=== PATIENT | female | born 1955 | race African-American/Black ===

== ENCOUNTER → 2017-02-23 | Outpatient (CLI) | payer BC, OTHER ==
[~2017-02-23] MED LIST: ADVAIR 500-501 EACH INH; AVELOX 400 MG400 M1 PO; DILTIAZEM 24HR120 M1 PO; DILTIAZEM ER180 M1 PO; DILTIAZEM ER240 M1 PO; DIOVAN320 MG PO; ELIQUIS5 MG PO; FISH OIL 1,0001 EAC5 PO; FLECAINIDE ACE150 MG PO; FLECAINIDE ACET50 M1 PO; HYDROXYCHLOROQ200 M1 PO; KLOR-CON 10 ER10 MEQ PO; LASIX 20 MG TAB20 MG PO; MULTI-VITAMIN1 EAC5 PO; NORVASC10 MG PO; PENTOXIFYLLINE400 MG PO; PRED FORTE 1% EY5 M1 OPHTHALMIC; PREDNISONE 5 MG5 M1 PO; PROMETHAZINE/C118 ML PO; RAYOS2 MG PO; SYMBICORT160 MCG/4. PO; XOPENEX HFA15 GM INH
== END ==
LOC: RAD 09:44
DX: M48.02 Spinal stenosis, cervical region (principal); R91.8 Other nonspecific abnormal finding of lung field; J90 Pleural effusion, not elsewhere classified; D86.9 Sarcoidosis, unspecified

== ENCOUNTER → 2017-12-08 | Outpatient (CLI) | payer BC, OTHER | LOC: RAD 14:52 | DX: I51.7 Cardiomegaly (principal) ==

== ENCOUNTER → 2018-02-11 | Outpatient (CLI) | payer BC, OTHER | LOC: CAT 11-04 13:38 → RAD 12:54 | DX: D86.9 Sarcoidosis, unspecified (principal) ==